=== PATIENT | female | born 1940 | race Two or more races ===

== ENCOUNTER 2022-12-13 18:55 | Inpatient (IN) | payer OTHER ==
[~2022-12-13] VITALS: Ht 157.5 cm; Wt 53.5 kg
[2022-12-13 20:58] LABS: Urine Bacteria NONE SEEN /hpf (None Seen); Urine Blood Negative /uL (Negative); Urine Hyaline Cast FEW /lpf (0 - 2); Urine WBC 7 /hpf (0 - 5)
[2022-12-13 21:19] LABS: Basophils # (auto) 0.1 10 ^3/uL (0-0.2); Basophils % (auto) 0.9 % (0.0-2.0); Eosinophils # (auto) 0.1 10 ^3/uL (0-0.8); Eosinophils % (auto) 1.9 % (0.0-7.0); Hematocrit 41.3 % (36.0-46.0); Hemoglobin 13.8 g/dL (12.2-16.2); Lymphocytes # (auto) 1.1 10 ^3/uL (0.4-5.4); Lymphocytes % (auto) 17.3 % (10.0-50.0); Mean Corpuscular Hemoglobin 31.8 pg (28.0-32.0); Mean Corpuscular Hgb Conc. 33.4 g/dL (32.0-36.0); Mean Corpuscular Volume 95.1 fL (80.0-100.0); Monocytes # (auto) 0.5 10 ^3/uL (0-1.3); Monocytes % (auto) 7.8 % (0.0-12.0); Neutrophils # (auto) 4.6 10 ^3/uL (1.6-8.6); Neutrophils % (auto) 72.1 % (37.0-80.0); Red Blood Cells 4.34 10^6/uL (4.0-5.20); Red Cell Distribution Width 14.2 % (11.8-14.3); White Blood Cell 6.3 10^3/uL (4.4-10.8)
[2022-12-13 21:47] LABS: Albumin 3.9 g/dL (3.4-5.0); Calcium 9.4 mg/dL (8.5-10.1)
[2022-12-13 21:55] VITALS: PULSE 65; RESP 20; O2SAT 96
[2022-12-13 21:57] LABS: BUN/Creatinine Ratio 17.6 (10.0-20.0); Bilirubin, Total 0.3 mg/dL (0.2-1.0); Potassium 4.7 mmol/L (3.5-5.1); Total Protein 7.3 g/dL (6.4-8.2)
[2022-12-14] MEDS ORDERED: NITROGLYCERIN 0.4 MG SL TAB SL PRN (02:15)
[2022-12-14] MEDS ORDERED: HYDROcodone-ACET 5/325MG TAB PO PRN (02:15)
[2022-12-14] MEDS ORDERED: ACETAMINOPHEN 325 MG TAB PO PRN (02:15)
[2022-12-14] MEDS ORDERED: MORPHINE SULFATE INJ 2 MG/ml SYRG IV PRN (02:15)
[2022-12-14] MEDS ORDERED: DOCUSATE SOD 100 MG CAP PO PRN (02:15)
[2022-12-14] MEDS ORDERED: ONDANSETRON HCL 4 MG/2 ML VIAL IV PRN (02:15)
[2022-12-14] MEDS ORDERED: cefTRIAXone 1GM/50ML D5W 50 ML IV ONE (02:15)
[2022-12-14] MEDS: SODIUM CHLOR 0.9% PF (SALINE LOCK) 10ML VIAL/SYR IV SCH ×3 (05:33→22:18)
[2022-12-14 06:34] LABS: Basophils # (auto) 0 10 ^3/uL (0-0.2); Basophils % (auto) 0.6 % (0.0-2.0); Eosinophils # (auto) 0.2 10 ^3/uL (0-0.8); Eosinophils % (auto) 3.4 % (0.0-7.0); Hematocrit 39.8 % (36.0-46.0); Hemoglobin 13.4 g/dL (12.2-16.2); Lymphocytes # (auto) 1.7 10 ^3/uL (0.4-5.4); Lymphocytes % (auto) 29.2 % (10.0-50.0); Mean Corpuscular Hemoglobin 31.5 pg (28.0-32.0); Mean Corpuscular Hgb Conc. 33.7 g/dL (32.0-36.0); Mean Corpuscular Volume 93.4 fL (80.0-100.0); Monocytes # (auto) 0.5 10 ^3/uL (0-1.3); Monocytes % (auto) 8.8 % (0.0-12.0); Neutrophils # (auto) 3.4 10 ^3/uL (1.6-8.6); Nucleated Red Blood Cells % 0.3 %; Red Blood Cells 4.27 10^6/uL (4.0-5.20); Red Cell Distribution Width 14.2 % (11.8-14.3); White Blood Cell 5.8 10^3/uL (4.4-10.8)
[2022-12-14 07:06] LABS: Potassium 3.8 mmol/L (3.5-5.1)
[2022-12-14 07:17] LABS: BUN/Creatinine Ratio 23.3 (10.0-20.0)
[2022-12-14 07:18] LABS: Albumin 3.6 g/dL (3.4-5.0); Bilirubin, Total 0.4 mg/dL (0.2-1.0); Calcium 8.8 mg/dL (8.5-10.1); Total Protein 6.8 g/dL (6.4-8.2)
[2022-12-14] MEDS ORDERED: AMIO200T33 PO (07:57)
[2022-12-14] MEDS ORDERED: HYDR12.59 PO (07:58)
[2022-12-14] MEDS ORDERED: OXYB5TAB24 PO (07:59)
[2022-12-14] MEDS ORDERED: LOSA100T58 PO (08:00)
[2022-12-14] MEDS ORDERED: RIV20T PO (08:02)
[2022-12-14] MEDS ORDERED: NIFE1TAB31 PO (08:14)
[2022-12-14 08:58] VITALS: PULSE 64; RESP 25; O2SAT 94
[2022-12-14] MEDS: cefTRIAXone 1GM/50ML D5W 50 ML IV SCH (09:16)
[2022-12-14] MEDS: APIXABAN 2.5 MG TAB PO SCH ×2 (09:16→22:18)
[2022-12-14] MEDS ORDERED: FAMOTIDINE (10MG/ML) 2ML VL IV SCH (10:00)
[2022-12-14 19:35] VITALS: PULSE 64; RESP 17; O2SAT 97
[2022-12-14 23:42] VITALS: BP 147/50; PULSE 62; RESP 20; TEMP 97.8; O2SAT 94
[2022-12-15] VITALS (7 sets, daily range): BP systolic 129–177; BP diastolic 44–80; PULSE 56–104; RESP 15–20; TEMP 93.9–99; O2SAT 91–98
[2022-12-15] MEDS ORDERED: MEMA1TAB3 PO (02:05)
[2022-12-15] MEDS ORDERED: OMEP-434 PO (02:05)
[2022-12-15 06:24] LABS: Basophils # (auto) 0 10 ^3/uL (0-0.2); Basophils % (auto) 0.9 % (0.0-2.0); Eosinophils # (auto) 0.2 10 ^3/uL (0-0.8); Hematocrit 38.5 % (36.0-46.0); Lymphocytes # (auto) 1.7 10 ^3/uL (0.4-5.4); Mean Corpuscular Hgb Conc. 33.8 g/dL (32.0-36.0); Mean Corpuscular Volume 94.7 fL (80.0-100.0); Monocytes # (auto) 0.5 10 ^3/uL (0-1.3); Monocytes % (auto) 8.7 % (0.0-12.0); Neutrophils # (auto) 3.1 10 ^3/uL (1.6-8.6); Neutrophils % (auto) 56.4 % (37.0-80.0); Nucleated Red Blood Cells % 0.1 %; Red Blood Cells 4.06 10^6/uL (4.0-5.20); Red Cell Distribution Width 14.2 % (11.8-14.3); White Blood Cell 5.5 10^3/uL (4.4-10.8)
[2022-12-15 06:39] LABS: Albumin 3.2 g/dL (3.4-5.0); Bilirubin, Total 0.4 mg/dL (0.2-1.0); Calcium 8.7 mg/dL (8.5-10.1); Total Protein 6.3 g/dL (6.4-8.2)
[2022-12-15] MEDS ORDERED: hydrALAZINE HCL 20 MG/ML VL IV PRN (07:00)
[2022-12-15] MEDS: SODIUM CHLOR 0.9% PF (SALINE LOCK) 10ML VIAL/SYR IV SCH ×3 (07:32→21:01)
[2022-12-15] MEDS: cefTRIAXone 1GM/50ML D5W 50 ML IV SCH (09:48)
[2022-12-15] MEDS: APIXABAN 2.5 MG TAB PO SCH ×2 (09:52→21:00)
[2022-12-15] MEDS: HCTZ 25 MG TAB PO SCH (09:52)
[2022-12-15] MEDS: MEMANTINE HCL 5 MG TAB PO SCH (09:52)
[2022-12-15] MEDS: PANTOPRAZOLE 40 MG TAB PO SCH (09:52)
[2022-12-15] MEDS: AMIODARONE HCL 200 MG TAB PO SCH (09:53)
[2022-12-16 05:00] VITALS: BP_SYST 130; BP_SYST 149; BP_DIAS 46; BP_DIAS 74; PULSE 59; PULSE 96; RESP 18; TEMP 97.9; TEMP 98.3; O2SAT 94; O2SAT 96
[2022-12-16] MEDS ORDERED: ADENOSINE 45 MG in GIVE UN-DILUTED 0 ML IV STA (07:41)
[2022-12-16 08:00] VITALS: PULSE 62
[2022-12-16] MEDS: PANTOPRAZOLE 40 MG TAB PO SCH (09:25)
[2022-12-16] MEDS: cefTRIAXone 1GM/50ML D5W 50 ML IV SCH (09:25)
[2022-12-16] MEDS: HCTZ 25 MG TAB PO SCH (09:25)
[2022-12-16] MEDS: AMIODARONE HCL 200 MG TAB PO SCH (09:25)
[2022-12-16] MEDS: APIXABAN 2.5 MG TAB PO SCH (09:25)
[2022-12-16] MEDS: MEMANTINE HCL 5 MG TAB PO SCH (09:25)
[2022-12-16 09:32] VITALS: BP 150/60; PULSE 65; RESP 20; TEMP 98; O2SAT 96
[2022-12-16 12:56] VITALS: BP 130/55; PULSE 67; RESP 16; TEMP 98.2; O2SAT 91
[2022-12-16] MEDS: SODIUM CHLOR 0.9% PF (SALINE LOCK) 10ML VIAL/SYR IV SCH (14:00)
[2022-12-16] MEDS ORDERED: CEFD300C2 PO (16:12)
[2022-12-16 17:00] VITALS: BP 152/61; PULSE 65; RESP 15; TEMP 98; O2SAT 96
[2022-12-16 17:10] VITALS: BP 157/71
== END 2022-12-16 18:31 | disposition home or self-care (01) | DRG 690 ==
LOC: ER 18:55 → EDBD 18:55 → TELE 12-14 02:09 → TELE-WESTW 12-14 21:08
PROVIDERS: ADMIT Hospitalist; ATTEND Hospitalist
DX: N39.0 Urinary tract infection, site not specified (principal); I10 Essential (primary) hypertension; I48.91 Unspecified atrial fibrillation; Z90.81 Acquired absence of spleen; F03.90 Unspecified dementia, unspecified severity, without behavioral disturbance, psychotic disturbance, mood disturbance, and anxiety
CPT/HCPCS: 36415; 70450; 71045; 78452; 80053; 81001; 82962; 84484; 85025; 87086; 93005; 93017; 93306; 96365; 96375; 97110; 97116; 97163; G0378; J0153; J0696; J3490